=== PATIENT | male | born 1955 | race Caucasian/White ===

== ENCOUNTER 2023-02-12 05:41 | Day surgery (SDC) | payer MEDICARE ==
[2023-02-10 14:40] VITALS: BMI 27.9
[2023-02-12] MEDS ORDERED: ONDANSETRON 4 MG/2 ML VIAL IVP ONE (06:13)
[2023-02-12] MEDS ORDERED: LACTATED RINGERS 1,000 ML IV SCH (06:13)
[2023-02-12] MEDS ORDERED: LIDOCAINE 1% (10MG/ML) FOR IV START INTRADERMA PRN (06:13)
[2023-02-12] MEDS ORDERED: HYDROmorphone 0.5 MG/0.5 ML SYRINGE IVP PRN (06:13)
[2023-02-12] MEDS ORDERED: MIDAZOLAM 2 MG/2 ML VIAL IV PRN (06:13)
[2023-02-12] MEDS ORDERED: DEXAMETHASONE SOD PHOSPHATE 4 MG/ML 1 ML VIAL IV ONE (06:13)
[2023-02-12 06:57] LABS: Glucose,Whole Blood 115 mg/dL (70-110)
[2023-02-12] MEDS ORDERED: ROPIVACAINE 5 MG/ML 30 ML VIAL ONE (07:27)
[2023-02-12] MEDS ORDERED: PROPOFOL 10 MG/ML 20 ML VIAL IV ONE (07:27)
[2023-02-12] MEDS ORDERED: LIDOCAINE 2% INJ 20 MG/ML (2 ML VIAL) ONE (07:27)
[2023-02-12] MEDS ORDERED: ePHEDrine 50 MG/ML 1 ML VIAL ONE (07:27)
[2023-02-12] MEDS ORDERED: PHENYLEPHRINE-0.9% NACL SYG 1,000 MCG/10 ML SYRINGE ONE (07:27)
--- NOTE | 2023-02-12 07:30 | P.ANPRN ---
Procedure Note - Anesthesia - Nerve Block Performed Left Popliteal Single Time Out Performed: Yes (0703) Date of Procedure: 02/12/23 Procedure Start Time: : Procedure Stop Time: :10 Location of Patient: PreOp Indication: Acute Post-Operative Pain, Dx/Pain Location (left foot pain ), Requested by Surgeon Sedation Type: Sedate with meaningful contact maintained Preparation: Sterile Prep Position: Supine Catheter: None Needle Types: Pajunk Needle Gauge: 21 Ultrasound used to visualize needle placement: Yes Ultrasound used to observe medication spread: Yes Injectate: 0.5% Ropivacaine (see comment for volume) (20 ml) Blood Aspirated: No Pain Paresthesia on Injection Noted: No Resistance on Injection: Normal Image Stored and Saved: Yes Events: Uneventful and Well Tolerated
--- NOTE | 2023-02-12 07:31 | P.ANPRN ---
Procedure Note - Anesthesia - Nerve Block Performed Left Adductor Canal Single Time Out Performed: Yes (0711) Date of Procedure: 02/12/23 Procedure Start Time: 07:11 Procedure Stop Time: 07:15 Location of Patient: PreOp Indication: Acute Post-Operative Pain, Dx/Pain Location (left foot pain ), Requested by Surgeon Sedation Type: Sedate with meaningful contact maintained Preparation: Sterile Prep Position: Supine Catheter: None Needle Types: Pajunk Needle Gauge: 21 Ultrasound used to visualize needle placement: Yes Ultrasound used to observe medication spread: Yes Injectate: Other (see comment) (0.2% Ropivacaine 15ml) Blood Aspirated: No Pain Paresthesia on Injection Noted: No Resistance on Injection: Normal Image Stored and Saved: Yes Events: Uneventful and Well Tolerated
--- NOTE | 2023-02-12 08:37 | P.OP ---
Date of Procedure: 02/12/23 Preoperative Diagnosis: Hallux rigidus left foot Postoperative Diagnosis: Same Procedure(s) Performed: First metatarsal phalangeal joint arthrodesis left foot Implants: Arthrex MaxForce plate and screws Arthrex allograft Anesthesia: RAMSES Surgeon: Ag Meza Estimated Blood Loss (ml): 1 Pathology: none sent Condition: stable Disposition: PACU Description of Procedure: Prior to the patient being brought to the operating room, anesthesia administered a nerve block and left flexion be. Then the patient was brought into the operative room and placed on table in supine position. Timeout was taken to confirm correct patient identifiers, correct laterally surgery, and correct procedure. When all staff in the room were in agreement timeout, the patient was induced and placed under general anesthesia. A well-padded tourniquet was placed left ankle and the left foot was prepped and draped usual manner. The left foot was exsanguinated and the tourniquet inflated to 250 mmHg. Attention was directed over the dorsomedial aspect of the first metatarsal phalangeal joint, where a linear incision was made between the long extensor tendon and neurovascular structures. The incision was deepened down to the saphenous tissue careful to identify, avoid, and retract any neurovascular structures and cauterize any bleeding vessels. Dissection was then carried down to level the joint capsule. Linear capsulotomy was made medial to the long extensor tendon. The capsule and periosteal tissues were reflected from the osseous structures of the first metatarsal head and base the proximal phalanx. All osteophytes were removed as necessary. The joint was fully distracted and a guidewire placed in the central aspect of the first metatarsal head and advanced into the medullary canal first metatarsal parallel to the long axis. A concave reamer was used to remove the cartilage and subchondral bone of the first metatarsal head. The guidewire was removed and used to aggressively fenestrate first metatarsal head. The guidewire was then placed in the central aspect of the articular surface of the base of proximal phalanx. The wire was advanced into medullary canal parallel to the long axis. The convex reamer was then used to remove the articular cartilage and subchondral bone. The guidewire was removed used to aggressively fenestrate the surface. The wound was then thoroughly irrigated with antibiotic irrigation. Arthrex allograft was then placed between the arthrodesis segments. The joint was held in corrected alignment and a guidewire placed across the joint. Fluoroscopy was used to check the alignment of the joint. Once satisfactory the Arthrex MaxForce plate was positioned over the dorsal aspect of the joint and then temporarily fixated. The plate was adjusted as needed until in the proper position. Locking screws were placed in the distal holes in the proximal phalanx first. Then a drill hole for the compression device was made through the plate. The compression ice was inserted and then turned to fully compressed the joint. Then a nonlocking screw was placed in the compression slot proximally, and then the screw inserted and tightened which further compressed the joint surface. Fluoroscopic imaging showed excellent compression across the arthrodesis site and maintain position of the great toe. 1 nonlocking and 1 locking screw were then placed in the appropriate holes in the proximal aspect of the plate. Final fluoroscopic imaging showed that the correction was maintained, all hardware was properly placed, and good bony contact remained at the arthrodesis site. The guidewire was removed and then the area irrigated with antibiotic saline. Capsular closure was done with 2-0 Vicryl. Subcu closure was done with 4-0 Monocryl. Skin closure was done with 4-0 stratafix in a running subcuticular manner. Dermal glue was applied until dry then covered Steri-Strips nonadherent gauze and a dry sterile dressing. The tourniquet was released and capillary refill return to all digits on left foot. The patient was then placed in a well- padded, well molded plaster posterior mold/sugar tong splint. Ankle and foot were held in neutral position until the splint was fully dried. Anesthesia was reversed and the patient was taken recovery with vital signs stable.
[2023-02-12 08:43] VITALS: TEMP 97.4
[2023-02-12 08:53] VITALS: RESP 16
[2023-02-12 09:36] VITALS: BP 124/73; PULSE 79
== END 2023-02-12 09:56 | disposition home or self-care (01) ==
LOC: OR 05:41
PROVIDERS: ATTEND Podiatrist
DX: M20.22 Hallux rigidus, left foot (principal); G89.18 Other acute postprocedural pain; E11.9 Type 2 diabetes mellitus without complications; Z79.84 Long term (current) use of oral hypoglycemic drugs; Z98.890 Other specified postprocedural states; Z90.49 Acquired absence of other specified parts of digestive tract
CPT/HCPCS: 64447; 64445; 76942; 28750; C1713; J2250; J1100; J0690; J2405; J2795; J2370; J2704; J2001